=== PATIENT | male | born 2000 | race Caucasian/White ===

== ENCOUNTER 2019-11-20 16:30 | Outpatient (RCR) | payer MEDICAID, SELFPAY ==
--- NOTE | 2019-09-18 11:14 | PTOPEVAL ---
PHYSICAL THERAPY EVALUATION AND PLAN OF CARE Thank you for referring Daquan Reyez to [facility]. Daquan is scheduled to participate in physical therapy 2x/week for 8 weeks. Please review, sign, date and return this plan of care CONSTANCE. I agree with and certify that the following plan of care is medically necessary. Referring Physician Date Admitting Provider: Attending Provider: Gilberto Mason MD Evaluation Outpatient Past Medical History Musculoskeletal History Hx Other Musculoskeletal Disorders Yes: left ACL/MCL reconstruction Diagnosis right MPFL recontruction Onset 08/10/2019 Subjective Information Daquan is here 6 weeks s/p Query Text:As Reported By Patient/ right MPFL reconstruction with Family tibial turbercle transfer osteotomy. He reports pain and ROM improving. He wears his brace while walking. He reports no restrictions at this time, but we will verify with physician at his next appointment. No longer using crutches. 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 Pain Assessment Timing of Pain Assessment Timing of Pain Assessment Assessment Pain Scale Pain Scale Used Numeric (1 - 10) Self Report Pain Assessment Right Knee(s) Reported Pain Level 0 Pain Description Aching Greatest Pain Intensity 4 Pain Relief Interventions Used By Ice Patient Pain Score Pain Score 0: Self Report Lower Extremity Range of Motion Knee Range of Motion Right Knee Flexion Range of Motion - Active 122 Knee Extension Range of Motion - Active 0 Query Text: Lower Extremity Muscle Strength Testing Hip Strength Right Hip Flexion Strength 5 Normal Hip Extension Strength 3+ Fair + Hip Abduction Strength 4+ Good + Knee Strength Right Knee Flexion Strength 3+ Fair + Knee Extension Strength 3- Fair - Knee Strength Comments fair minus quad set; unable to perform sit>stand without compensatory strategy off right LE Muscle Length Testing Left Hamstring Length -15 Query Text:(90 - 90 Position) Right Hamstring Length -15 Query Text:(90 - 90 Position) Gastrocnemius Length (R) Moderate Tightness Palpation deep trigger point noted to right lateral gastroc head; right quadriceps ana lilia
--- NOTE | 2019-09-26 12:47 | PCPTNOTE ---
Addendum entered by Dianna Herring, PT 09/26/19 16:08: called to inform patient of next appointment. left message. Original Note: Patient did not show up for scheduled appointment this date.
--- NOTE | 2019-10-05 13:35 | PCPTNOTE ---
Patient did not show up for scheduled appointment this date.
--- NOTE | 2019-10-10 13:37 | PCPTNOTE ---
Patient did not show for appointment this date.
--- NOTE | 2019-10-16 12:58 | PCPTNOTE ---
Patient did not show up for scheduled appointment this date.
--- NOTE | 2019-10-24 13:21 | PTOPEVAL ---
PHYSICAL THERAPY PROGRESS REPORT AND PLAN OF CARE UPDATE Thank you for referring Daquan Reyez to [facility].? The patient is scheduled to be seen for therapy? 1x in 3 weeks for follow-up. Please review, sign, date and return this plan of care CONSTANCE. I agree with and certify that the following plan of care is medically necessary. Referring Physician Date Progress Outpatient Past Medical History Musculoskeletal History Hx Other Musculoskeletal Disorders Yes: left ACL/MCL reconstruction Self Report Pain Assessment Right Knee(s) Reported Pain Level 0 Pain Score Pain Score 0: Self Report Lower Extremity Range of Motion Knee Range of Motion Right Knee Flexion Range of Motion - Active 130 Knee Extension Range of Motion - Active 0 Query Text: Lower Extremity Muscle Strength Testing Hip Strength Right Hip Flexion Strength 5 Normal Hip Extension Strength 4- Good - Hip Abduction Strength 5 Normal Knee Strength Right Knee Flexion Strength 4+ Good + Knee Extension Strength 3+ Fair + Knee Strength Comments good quad set; unilateral leg press 90# [id number]; bilateral leg press = 190# ; unable to perform SLS squat or single leg jump Ankle Strength Right Ankle Strength Comments single leg heel raises: 15/20 with poor heel height Palpation Assessment Palpation Palpation good patellar mobility; all scars move well without apparent adhesions PT Clinical Summary Daquan is now 11weeks s/p right MPFL reconstruction with tibial trubercle transfer osteotomy. He presents today with progressing strength and stability of right knee. He continues to have significant quad strength deficit and deficit of quad control of right leg. He is unable to run or jump off of the right leg at this time. 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 We agreed to check in in 3 weeks to determine if personal trianing is enough to gain his strength. PT Services Indicated Yes Rehabilitation Potential Excellent Potential Barriers to Goal Achievements None Support Requ
--- NOTE | 2019-11-14 15:19 | PCPTNOTE ---
Patient called & cancelled scheduled appointment this date. He rescheduled for next week.
--- NOTE | 2019-11-20 17:27 | PTOPEVAL ---
PHYSICAL THERAPY PLAN OF CARE UPDATE AND PROGRESS REPORT Thank you for referring Daquan Reyez to [facility].? The patient is scheduled to be seen for follow-up in 1 month. Please review, sign, date and return this plan of care CONSTANCE. I agree with and certify that the following plan of care is medically necessary. Referring Physician Date Progress Diagnosis right MPFL recontruction Onset 08/10/2019 Subjective Information Daquan is here 3months right Query Text:As Reported By Patient/ MPFL reconstruction with Family tibial turbercle transfer osteotomy. doing band work with his ehr trainer and going to [employer] for weight training. 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 Pain Assessment Timing of Pain Assessment Timing of Pain Assessment Pre-Treatment Self Report Self Report Pain Level 0 Hip Strength Right Hip Flexion Strength 5 Normal Hip Extension Strength 4 Good Hip Abduction Strength 5 Normal Knee Strength Right Knee Flexion Strength 4+ Good + Knee Extension Strength 3+ Fair + Knee Strength Comments good quad set; unilateral leg press 120# [id number]; bilateral leg press = 240#; performs a single leg squat to 30deg with difficulty and discomfort in right knee; unable to jump off right LE - performed single leg jump off left to bilateral landing --cues for equal weight bearing and soft landing Ankle Strength Right Ankle Strength Comments single leg heel raises:20/20 with moderate heel height Rehab Teaching Response Verbalizes Understanding Method Discussion Additional Rehab Teaching Comments instructed pt in lifts, squat rack, leg press, etc at gym PT Clinical Summary Daquan is now 15weeks s/p right MPFL reconstruction with tibial trubercle transfer osteotomy. Continues to demonstrate progressing strength and stability of right LE. Continues to have significant quadriceps strength deficits. We
--- NOTE | 2019-12-18 07:53 | PCPTNOTE ---
This treatment is being continued on visit number [id number]. Please see documentation on both accounts to view progress. Completed interventions, outcomes, and problems have been marked as Inactive to facilitate the copying of the Care plan routine for recurring accounts.
== END 2019-12-15 13:15 | disposition home or self-care (01) ==
LOC: ANHPT 16:30
DX: S83.004D Unspecified dislocation of right patella, subsequent encounter (principal)
CPT/HCPCS: 97110; 97140; 97161

== ENCOUNTER 2020-01-16 16:00 | Outpatient (RCR) | payer OTHER, SELFPAY ==
--- NOTE | 2019-12-18 07:53 | PCPTNOTE ---
The treatment documented on this account is a continuation of the treatment documented on visit number [id number]. Please see documentation on both accounts to view progress. The Plan of Care has been transitioned and updated within the new V#. I have addressed and agree with the discipline specific Problems, Interventions, and Goals for the current certification period. Completed interventions, outcomes, and problems have been marked as Inactive to facilitate the copying of the Care plan routine for recurring accounts.
--- NOTE | 2019-12-19 17:20 | PTOPEVAL ---
Thank you for referring Daquan Reyez to [facility].? The patient is scheduled to be seen for therapy? ____x/week for ___ weeks. Please review, sign, date and return this plan of care CONSTANCE. I agree with and certify that the following plan of care is medically necessary. Referring Physician Date Admitting Provider: Attending Provider: PHYSICIAN NOT ON STAFF Referring Provider: *PT Outpatient Evaluation Start: 12/18/19 07:54 Freq: Status: Active Protocol: Document 12/19/19 16:35 ANN-MARIE (Rec: 12/19/19 17:14 ANN-MARIE [id number]) Outpatient Past Medical History Musculoskeletal History Hx Other Musculoskeletal Disorders Yes: left ACL/MCL reconstruction Evaluation Information Problem Diagnosis right MPFL recontruction Onset 08/10/2019 Subjective Information Daquan is here 4months right Query Text:As Reported By Patient/ MPFL reconstruction with Family tibial turbercle transfer osteotomy. Continues doing band work with his hop strainer and going to [employer] for weight training. 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 Pain Assessment Timing of Pain Assessment Timing of Pain Assessment Pre-Treatment Self Report Self Report Pain Level 0 Knee Strength Right Knee Strength Comments good quad set; unilateral leg press 150# [id number] (61% of body weight); performs a single leg squat to 60deg comfortably; - small hop off right LE with stiff leg landing --instructed patient to use leg press and shuttle jump to continue strengthening and learning to land softly on LE PT Clinical Summary Daquan is now 19weeks s/p right MPFL reconstruction with tibial trubercle transfer osteotomy. Continues to demonstrate progressing strength and stability of right LE. Does continue to have significant quadriceps strength deficits. He is performing leg press at 61% of his body weight and we started a jogging progression today to promote ability to weight bear and land softly through right LE. Instructed Daquan to find a way to use a shuttle jump to progressively
--- NOTE | 2020-01-16 16:35 | PCPTNOTE ---
Patient did not show up for scheduled appointment this date. Called patient and he stated he forgot his appointment and was in class. States that his knee is doing well. His next MD appt is March 05, 2020. Daquan is performing HEP, but would like to have another check in with therapist before next MD appointment. Rescheduled appt for 02/06/2020 at 17:00.
--- NOTE | 2020-02-06 17:28 | PCPTNOTE ---
Patient did not show up for scheduled appointment this date. Called and left a message regarding attendance policy. I will take one more attempt to get ahold of patient before discharging.
--- NOTE | 2020-02-07 11:20 | PCPTNOTE ---
Called patient's primary number and voicemail was full. I called patient's secondary number and his mother answered the phone. I explained that he missed his appointment yesterday and she said she would get a hold of him to call us back.
--- NOTE | 2020-02-21 11:02 | PCPTNOTE ---
PHYSICAL THERAPY DISCHARGE NOTE Patient:Daquan Reyez Date of :2000 Patient has not returned for any further treatments since 12/19/2019, therefore he will be discharged at this time. Patient?s initial visit was on 09/18/2019 16:30 and had a total of 8 visits. The goals have been partially met. Thank you for referring this patient to [facility]. Please review, sign, date and return this discharge summary CONSTANCE. I have been updated about the patient's current status and I agree with discharge from the above service at this time. Referring Physician Date
== END 2020-02-21 14:15 | disposition home or self-care (01) ==
LOC: ANHPT 16:00
DX: S83.004D Unspecified dislocation of right patella, subsequent encounter (principal)
CPT/HCPCS: 97110